=== PATIENT | female | born 1985 | race Caucasian/White ===

== ENCOUNTER 2016-12-25 09:12 | Emergency (ER) | payer OTHER ==
[~2016-12-25 09:12] MED LIST: IMPLANON68 MG
== END 2016-12-25 10:52 | disposition left against medical advice (07) ==
LOC: EME 09:12
DX: Z02.9 Encounter for administrative examinations, unspecified (principal); Z53.21 Procedure and treatment not carried out due to patient leaving prior to being seen by health care provider